=== PATIENT | male | born 1985 | race Caucasian/White ===

== ENCOUNTER 2018-06-19 01:37 | Emergency (ER) | payer OTHER, MEDICARE ==
[2018-06-19] MEDS ORDERED: Morphine 4 MG/ML VIAL ONE (02:08)
[2018-06-19 02:59] LABS: #Eosinphils 0.1 thou/uL (0.0-0.7); #Monocytes 0.5 thou/uL (0.11-0.59); #Neutrophils 3.7 thou/uL (1.40-6.50); %Basophils 0.2 % (0.0-1.0); %Eosinophils 1.4 % (0.0-10.0); %Lymphocytes 32.1 % (21.0-51.0); %Neutrophils 58.4 % (42.0-75.0); Hemoglobin 14.8 g/dL (14.0-18.0); Mean Corpuscular HGB CONC 34.7 g/dL (32.0-36.0); Mean Corpuscular Hemoglobin 31.3 pg (27.0-31.0); Mean Corpuscular Volume 90.2 fL (78.0-98.0); Mean Platelet Volume 7.7 fL (7.4-10.4); Platelet Count 236 thou/uL (130-400); RBC Distribution Width 11.1 % (11.5-14.5); Red Blood Cell (RBC) Count 4.72 mill/uL (4.70-6.10); White Blood Cell (WBC) Count 6.3 thou/uL (4.8-10.8)
[2018-06-19 03:16] LABS: ALT (SGPT) 21 U/L (8-55); AST (SGOT) 18 U/L (5-34); Albumin 4.5 g/dL (3.5-5.0); Alkaline Phosphatase 67 U/L (40-150); Anion Gap 12 mmol/L (10-20); BUN (Urea Nitrogen) 13 mg/dL (8.9-20.6); Bilirubin, Total 0.8 mg/dL (0.2-1.2); Calc. Creatinine Clearance 0 mL/min (70-130); Carbon Dioxide 24 mmol/L (22-29); Chloride 108 mmol/L (98-107); Estimated GFR-MDRD 88; Globulin 2.5 g/dL (2.4-3.5); Glucose 109 mg/dL (70-105); Potassium 3.6 mmol/L (3.5-5.1); Sodium 140 mmol/L (136-145)
[2018-06-19] MEDS ORDERED: Acetaminophen/Codeine 30-300mg Tablet ONE ×2 (03:20)
[2018-06-19] MEDS ORDERED: Ketorolac Tromethamine 30 MG/ML VIAL ONE (03:37)
[2018-06-19] MEDS ORDERED: Morphine 10 MG/ML VIAL ONE (03:37)
--- NOTE | 2018-06-19 08:24 | CT ---
PRELIMINARY REPORT/[facility]/EMERGENTY AFTER-HOURS PROCEDURE CT Head Without Intravenous Contrast EXAM DATE/TIME: 06/19/2018 2:34 AM CLINICAL HISTORY: 33 years old, male; Pain and signs and symptoms; Dizziness; Headache; Patient HX: Er 8; M73 presents to the ed C/O chest pain and SOB that was first noticed 1 month ago. PT. Reports that his symptoms we re exacerbated tonight around 2300 while laying down. PT. Describes pain as being localized in center of chest and as a pressure. PT. Does have HX of breast CA in 2000, had a resectio n. TECHNIQUE: Axial computed tomography images of the head/brain without intravenous contrast. COMPARISON: No relevant prior studies available. FINDINGS: Brain: There is no evidence of intracranial hemorrhage. No white matter abnormalities. Ventricles: There is a THIOKOL OPERATOR shunt which enters via the RIGHT frontal lobe and courses into the RIGHT fr ontal horn. No ventricular dilatation. Bones/joints: Patient is post posterior craniectomy Sinuses: Normal as visualized. No acute sinusitis. Mastoid air cells: Normal as visualized. No mastoid effusion. Soft tissues: Normal. IMPRESSION: No acute intracranial hemorrhage. Posterior craniectomy with THIOKOL OPERATOR shunt as above. Thank you for allowing us to participate in the care of your patient. Dictated and Authenticated by: Naresh Yoon MD 06/19/2018 2:49 AM Central Time ([place] & [place]) FINAL REPORT CT HEAD NONCONTRAST: DATE: 06/19/2018. TIME: Performed on an emergency basis at 0235 hours. HISTORY: Headache. Prior surgery. FINDINGS: No comparison. Agree with the preliminary report by Dr. Yoon from [facility]. Postoperativ e changes. No acute intracranial abnormalities are demonstrated. POS: [facility]
--- NOTE | 2018-06-19 08:37 | RAD ---
SKULL 2 VIEWS NECK 1 VIEW CHEST 1 VIEW ABDOMEN 1 VIEW: Date: 06/19/18 HISTORY: Evaluate shunt integrity. Headache. FINDINGS: Radiopaque tubing extends from the right cranium along the right side of the neck, mediastinum, and i nto the right lower quadrant of the abdomen. No discontinuity is apparent. No active cardiopulmonary abnormalities are demonstrated. Bowel gas pattern is nonspecific. IMPRESSION: Right ventriculoperitoneal shunt is radiographically intact. POS: [facility]
== END 2018-06-19 04:33 | disposition home or self-care (01) ==
LOC: ERS 01:37
DX: R51 Headache (principal); F17.210 Nicotine dependence, cigarettes, uncomplicated
CPT/HCPCS: 36415; 70450; 75809; 80053; 85025; 85652; 86140; 96361; 96374; 96375; 96376; J1885; J2270

== ENCOUNTER 2018-09-27 21:50 | Emergency (ER) | payer OTHER, MEDICARE ==
[2018-09-27] MEDS ORDERED: Ondansetron PF 4 MG/2 ML Vial ONE (22:32)
[2018-09-27] MEDS ORDERED: Morphine 4 MG/ML VIAL ONE (22:32)
--- NOTE | 2018-09-27 23:03 | CT ---
NONCONTRAST CT HEAD: 09/27/18 HISTORY: Headache with onset of symptoms this morning. Pain is located in back of head. COMPARISON: 06/19/18. FINDINGS: Ventriculoperitoneal shunt catheter is again noted in place entering via the right frontal approach w ith the tip unchanged in position near the foramen of Monro on the right. There is no evidence of an intraparenchymal or extra-axial hemorrhage. No mass effect or midline shift is seen. Postsurgical lissette nges related to occipital craniotomy defect are again seen with mild volume loss involving the medial aspects of each cerebellar hemisphere. There has been no other interval change from the prior exam. IMPRESSION: 1. No acute intracranial abnormalities demonstrated. 2. Ventriculoperitoneal shunt catheter stable in position without evidence of hydrocephalus. The re is stable asymmetry in the size of the left lateral ventricle compared to the right. 3. Stable occipital craniotomy defect. POS: [facility]
--- NOTE | 2018-09-27 23:06 | RAD ---
SHUNTOGRAM: 09/27/18 HISTORY: Patient reports headaches that started this morning with nausea. History of prior brain surgeries and brain swelling. COMPARISON: 06/19/18. FINDINGS: AP and lateral views of the skull, AP views of the chest and abdomen are obtained. As noted on the prior exam, there is a ventriculoperitoneal shunt catheter entered via a right fronta l approach. The ventriculoperitoneal shunt catheter does appear to be intact. Distal portion of the c atheter extends into the pelvis with the tip overlying the central pelvis to the left of midline. The lungs are clear. Bowel gas pattern is nonspecific. IMPRESSION: Right ventriculoperitoneal shunt catheter which is radiographically intact. POS: [facility]
[2018-09-28] MEDS ORDERED: Ketorolac Tromethamine 30 MG/ML VIAL ONE ×2 (00:05→00:07)
[2018-09-28] MEDS ORDERED: Morphine 4 MG/ML VIAL ONE ×2 (00:05→00:07)
== END 2018-09-28 00:45 | disposition home or self-care (01) ==
LOC: ERS 21:50
DX: R51 Headache (principal); F17.210 Nicotine dependence, cigarettes, uncomplicated
CPT/HCPCS: 70450; 75809; 96361; 96374; 96375; 96376; J1885; J2270; J2405

== ENCOUNTER 2018-12-18 13:48 | Emergency (ER) | payer MEDICARE, OTHER ==
[2018-12-18 15:00] LABS: #Basophils 0.1 thou/uL (0.0-0.2); #Eosinphils 0.1 thou/uL (0.0-0.7); #Lymphocytes 1.6 thou/uL (1.20-3.40); #Monocytes 0.3 thou/uL (0.11-0.59); #Neutrophils 3.5 thou/uL (1.40-6.50); %Eosinophils 1.6 % (0.0-10.0); %Lymphocytes 28.1 % (21.0-51.0); %Monocytes 5.6 % (0.0-10.0); %Neutrophils 63.8 % (42.0-75.0); Hemoglobin 14.7 g/dL (14.0-18.0); Mean Corpuscular HGB CONC 33.9 g/dL (32.0-36.0); Mean Corpuscular Hemoglobin 30.1 pg (27.0-31.0); Mean Corpuscular Volume 88.7 fL (78.0-98.0); Mean Platelet Volume 8.1 fL (7.4-10.4); Platelet Count 234 thou/uL (130-400); RBC Distribution Width 11.3 % (11.5-14.5); Red Blood Cell (RBC) Count 4.89 mill/uL (4.70-6.10); White Blood Cell (WBC) Count 5.5 thou/uL (4.8-10.8)
--- NOTE | 2018-12-18 15:02 | CT ---
Exam: CT brain without contrast HISTORY: History of traumatic brain injury with altered mental status COMPARISON: 09/27/2018 TECHNIQUE: Multiple contiguous axial images were obtained and a CT of the brain without contrast. FINDINGS: The ventriculostomy catheter is unchanged in position. There is no evidence of hydrocephalu s, intracranial hemorrhage, or extra-axial fluid collection. Postsurgical changes are seen in the posterior calvarium and surrounding the right frontal approach v entriculostomy catheter.. The visualized paranasal sinuses and mastoid air cells are well aerated. IMPRESSION: No evidence of acute intracranial abnormality
[2018-12-18 15:18] LABS: ALT (SGPT) 12 U/L (8-55); AST (SGOT) 15 U/L (5-34); Albumin 4.7 g/dL (3.5-5.0); Alkaline Phosphatase 89 U/L (40-150); Anion Gap 9 mmol/L (10-20); BUN (Urea Nitrogen) 12 mg/dL (8.9-20.6); Bilirubin, Total 0.4 mg/dL (0.2-1.2); CK (CPK) 189 U/L (30-200); Calc. Creatinine Clearance 0 mL/min (70-130); Calcium 9.8 mg/dL (7.8-10.44); Carbon Dioxide 30 mmol/L (22-29); Chloride 106 mmol/L (98-107); Estimated GFR-MDRD 80; Globulin 2.6 g/dL (2.4-3.5); Glucose 79 mg/dL (70-105); Potassium 4.2 mmol/L (3.5-5.1); Protein, Total 7.3 g/dL (6.0-8.3); Sodium 141 mmol/L (136-145)
--- NOTE | 2018-12-20 14:22 | EKG ---
Test Reason : Blood Pressure : / mmHG Vent. Rate : 057 BPM Atrial Rate : 057 BPM P-R Int : 140 ms QRS Dur : 096 ms QT Int : 398 ms P-R-T Axes : 023 010 029 degrees QTc Int : 387 ms Sinus bradycardia Otherwise normal ECG Confirmed by MARIE HERNANDEZ DO ([id number]), design editor SHAUN DOMINGO ([id number]) on 12/20/2018 2:22:05 PM Referred By: Confirmed By:MARIE HERNANDEZ DO
== END 2018-12-18 18:10 | disposition home or self-care (01) ==
LOC: ERS 13:48
DX: R53.83 Other fatigue (principal); R51 Headache; H53.8 Other visual disturbances; F43.10 Post-traumatic stress disorder, unspecified; F17.220 Nicotine dependence, chewing tobacco, uncomplicated
CPT/HCPCS: 36415; 70450; 80053; 82550; 84443; 85025; 93005

== ENCOUNTER 2021-09-09 00:06 | Emergency (ER) | payer OTHER ==
[2021-09-09] MEDS ORDERED: diphenhydrAMINE 50 MG/ML VIAL ONE (00:51)
[2021-09-09] MEDS ORDERED: Metoclopramide HCl 10 MG/2 ML VIAL ONE (00:51)
[2021-09-09] MEDS ORDERED: Haloperidol Lactate 5 MG/ML VIAL ONE (02:21)
== END 2021-09-09 02:26 | disposition home or self-care (01) ==
LOC: ERS 00:06
DX: R51.9 Headache, unspecified (principal); Z87.820 Personal history of traumatic brain injury; F17.220 Nicotine dependence, chewing tobacco, uncomplicated; F17.210 Nicotine dependence, cigarettes, uncomplicated
CPT/HCPCS: 96374; 96375; J1200; J1630; J2765

== ENCOUNTER 2021-10-14 14:00 | Inpatient (IN) | payer OTHER ==
[2021-10-14] MEDS ORDERED: Ketorolac Tromethamine 30 MG/ML VIAL ONE (14:45)
[2021-10-14] MEDS ORDERED: Metoclopramide HCl 10 MG/2 ML VIAL ONE (14:45)
[2021-10-14] MEDS ORDERED: Morphine 4 MG/ML VIAL ONE ×2 (16:55→17:34)
[2021-10-14] MEDS ORDERED: Ondansetron PF 4 MG/2 ML Vial ONE (16:55)
[2021-10-14 17:24] LABS: #Lymphocytes 1.4 thou/uL (1.20-3.40); #Monocytes 0.3 thou/uL (0.11-0.59); #Neutrophils 3.9 thou/uL (1.40-6.50); %Basophils 0.8 % (0.0-1.0); %Eosinophils 0.9 % (0.0-10.0); %Monocytes 4.8 % (0.0-10.0); %Neutrophils 69.5 % (42.0-75.0); Hemoglobin 15.4 g/dL (14.0-18.0); Mean Corpuscular HGB CONC 35.2 g/dL (32.0-36.0); Mean Corpuscular Hemoglobin 31.2 pg (27.0-31.0); Mean Corpuscular Volume 88.6 fL (78.0-98.0); Mean Platelet Volume 7.9 fL (7.4-10.4); Platelet Count 222 thou/uL (130-400); RBC Distribution Width 11.2 % (11.5-14.5); Red Blood Cell (RBC) Count 4.94 mill/uL (4.70-6.10); White Blood Cell (WBC) Count 5.7 thou/uL (4.8-10.8)
[2021-10-14 17:46] LABS: ALT (SGPT) 43 U/L (8-55); AST (SGOT) 29 U/L (5-34); Albumin 4.6 g/dL (3.5-5.0); Alkaline Phosphatase 79 U/L (40-110); Anion Gap 13 mmol/L (10-20); BUN (Urea Nitrogen) 12 mg/dL (8.9-20.6); Bilirubin, Total 0.4 mg/dL (0.2-1.2); Calc. Creatinine Clearance 0 mL/min (70-130); Calcium 9.4 mg/dL (7.8-10.44); Carbon Dioxide 25 mmol/L (22-29); Chloride 106 mmol/L (98-107); Globulin 2.8 g/dL (2.4-3.5); Glucose 131 mg/dL (70-105); Potassium 4.5 mmol/L (3.5-5.1); Protein, Total 7.4 g/dL (6.0-8.3); Sodium 139 mmol/L (136-145)
[2021-10-14] MEDS ORDERED: Acetaminophen 325 MG TAB PO PRN (17:58)
[2021-10-14] MEDS ORDERED: Ondansetron PF 4 MG/2 ML Vial IVP PRN (17:59)
[2021-10-14 18:42] LABS: SARS-CoV-2 NAA Rapid Test Not Detected (NotDetected)
[2021-10-14] MEDS: Acetaminophen/Codeine 30-300mg Tablet PO PRN (19:12)
[2021-10-14 19:52] VITALS: BMI 30.4
[2021-10-14] MEDS: Morphine 4 MG/ML VIAL SLOW IVP PRN (22:56)
[2021-10-15] MEDS: Acetaminophen/Codeine 30-300mg Tablet PO PRN ×2 (01:56→22:19)
[2021-10-15] MEDS: Morphine 4 MG/ML VIAL SLOW IVP PRN ×3 (02:54→08:42)
[2021-10-15] MEDS: HYDROcodone/Acetaminophen 5/325 mg Tablet PO PRN ×3 (06:44→21:09)
[2021-10-15] MEDS ORDERED: Fentanyl 100 MCG/2 ML VIAL ONE ×4 (09:41→13:37)
[2021-10-15] MEDS ORDERED: ceFAZolin 2 GM/Dextrose 50 ML IVPB ONE (09:41)
[2021-10-15] MEDS ORDERED: Bacitracin Zinc Ointment 30 gm TUBE ONE (10:11)
[2021-10-15] MEDS ORDERED: Lidocaine 0.5%/Epinephrine 1:200,000 50 ml Vial ONE (10:11)
[2021-10-15] MEDS ORDERED: Thrombin 5000 UNITS/5 ML VIAL ONE (10:11)
[2021-10-15] MEDS ORDERED: Rocuronium Bromide 10 MG/ML (10ML VIAL) ONE (11:23)
[2021-10-15] MEDS ORDERED: PROPOFOL 200 MG/20 ML VIAL ONE (11:23)
[2021-10-15] MEDS ORDERED: Ketorolac Tromethamine 30 MG/ML VIAL ONE (11:23)
[2021-10-15] MEDS ORDERED: Glycopyrrolate 0.2 MG/ML 5 ML SYRINGE ONE (11:23)
[2021-10-15] MEDS ORDERED: Ondansetron PF 4 MG/2 ML Vial ONE (11:23)
[2021-10-15] MEDS ORDERED: Lidocaine 1% PF 5 ML VIAL ONE (11:23)
[2021-10-15] MEDS ORDERED: Dexamethasone 20 MG/5 ML VIAL ONE (11:23)
[2021-10-15] MEDS ORDERED: hydrALAZINE 20 MG/ML VIAL SLOW IVP PRN (12:45)
[2021-10-15] MEDS ORDERED: ceFAZolin 2 GM/Dextrose 50 ML 2 GM in Premix Bag 1 BAG IVPB SCH (14:00)
[2021-10-15] MEDS: Sodium Chloride 0.9% 1,000 ML IV SCH (14:43)
[2021-10-15] MEDS ORDERED: Fentanyl 100 MCG/2 ML VIAL SLOW IVP PRN (15:20)
[2021-10-15] MEDS: Fentanyl 100 MCG/2 ML VIAL SLOW IVP PRN ×4 (15:43→22:17)
[2021-10-15] MEDS: ceFAZolin 2 GM/Dextrose 50 ML 2 GM in Premix Bag 1 BAG IVPB SCH (20:10)
[2021-10-16] MEDS: Fentanyl 100 MCG/2 ML VIAL SLOW IVP PRN ×3 (00:28→08:07)
[2021-10-16] MEDS: HYDROcodone/Acetaminophen 5/325 mg Tablet PO PRN (03:18)
[2021-10-16] MEDS: Sodium Chloride 0.9% 1,000 ML IV SCH (03:20)
[2021-10-16] MEDS: Acetaminophen/Codeine 30-300mg Tablet PO PRN (04:33)
[2021-10-16] MEDS: ceFAZolin 2 GM/Dextrose 50 ML 2 GM in Premix Bag 1 BAG IVPB SCH ×2 (04:34→11:55)
[2021-10-16] MEDS ORDERED: Ketorolac Tromethamine 30 MG/ML VIAL IVP SCH (10:00)
[2021-10-16] MEDS ORDERED: Labetalol HCl 100 MG/20 ML VIAL ONE (12:15)
[2021-10-16 12:30] VITALS: BP 112/68; TEMP 98
== END 2021-10-16 14:10 | disposition home or self-care (01) | DRG 32 ==
LOC: ERS 14:00 → CCU 17:35 → SURG B 10-15 13:55
PROVIDERS: ADMIT Surgery; ATTEND Surgery
PROC: 00W60JZ Revision of Synthetic Substitute in Cerebral Ventricle, Open Approach (ICD-10-PCS; principal; 2021-10-15)
DX: T85.09XA Other mechanical complication of ventricular intracranial (communicating) shunt, initial encounter (principal); G91.9 Hydrocephalus, unspecified; Z20.822 Contact with and (suspected) exposure to COVID-19; Y83.8 Other surgical procedures as the cause of abnormal reaction of the patient, or of later complication, without mention of misadventure at the time of the procedure; F43.10 Post-traumatic stress disorder, unspecified; F17.220 Nicotine dependence, chewing tobacco, uncomplicated; Z87.820 Personal history of traumatic brain injury; Z82.49 Family history of ischemic heart disease and other diseases of the circulatory system; Z79.899 Other long term (current) drug therapy
CPT/HCPCS: 70450; 72125; 75809; 80053; 85025; 85652; 86140; C1889; J0690; J1100; J1885; J2001; J2270; J2405; J2704; J2765; J3010; J3370; J7050; L8501; U0002

== ENCOUNTER 2022-04-06 21:47 | Emergency (ER) | payer OTHER ==
[~2022-04-06 21:47] MED LIST: Iopamidol-370 76% 500 ML 1 ML ONE
[2022-04-06] MEDS ORDERED: Meclizine HCl 25 MG TAB ONE (22:11)
[2022-04-06 22:28] LABS: Hemoglobin 14.5 g/dL (14.0-18.0); Mean Corpuscular HGB CONC 34.2 g/dL (32.0-36.0); Mean Corpuscular Hemoglobin 31.4 pg (27.0-31.0); Mean Corpuscular Volume 91.7 fL (78.0-98.0); RBC Distribution Width 11.8 % (11.5-14.5); Red Blood Cell (RBC) Count 4.63 mill/uL (4.70-6.10); White Blood Cell (WBC) Count 9.3 thou/uL (4.8-10.8)
[2022-04-06 22:40] LABS: ALT (SGPT) 31 U/L (8-55); AST (SGOT) 23 U/L (5-34); Albumin 4.4 g/dL (3.5-5.0); Alkaline Phosphatase 76 U/L (40-110); Anion Gap 13 mmol/L (10-20); BUN (Urea Nitrogen) 9 mg/dL (8.9-20.6); Bilirubin, Total 0.6 mg/dL (0.2-1.2); Calc. Creatinine Clearance 0 mL/min (70-130); Calcium 8.9 mg/dL (7.8-10.44); Carbon Dioxide 26 mmol/L (22-29); Chloride 107 mmol/L (98-107); Estimated GFR 82; Globulin 2.5 g/dL (2.4-3.5); Glucose 98 mg/dL (70-105); Potassium 3.4 mmol/L (3.5-5.1); Protein, Total 6.9 g/dL (6.0-8.3); Sodium 143 mmol/L (136-145)
[2022-04-06 22:41] LABS: #Basophils 0.1 thou/uL (0.0-0.2); #Eosinphils 0.1 thou/uL (0.0-0.7); #Lymphocytes 2.9 thou/uL (1.20-3.40); #Monocytes 0.8 thou/uL (0.11-0.59); #Neutrophils 5.4 thou/uL (1.40-6.50); %Basophils 0.8 % (0.0-1.0); %Eosinophils 1.5 % (0.0-10.0); %Lymphocytes 31.6 % (21.0-51.0); %Monocytes 8.6 % (0.0-10.0); %Neutrophils 57.5 % (42.0-75.0); Mean Platelet Volume 9.1 fL (7.4-10.4); Platelet Count 171 thou/uL (130-400)
== END 2022-04-07 00:05 | disposition home or self-care (01) ==
LOC: ERS 21:47
DX: H81.393 Other peripheral vertigo, bilateral (principal); F17.220 Nicotine dependence, chewing tobacco, uncomplicated
CPT/HCPCS: 36415; 70450; 70496; 70498; 75809; 80053; 85025; 93005

== ENCOUNTER 2022-04-27 09:43 | Emergency (ER) | payer OTHER ==
[2022-04-27 12:28] LABS: #Eosinphils 0.1 thou/uL (0.0-0.7); #Lymphocytes 1.5 thou/uL (1.20-3.40); #Monocytes 0.4 thou/uL (0.11-0.59); #Neutrophils 5.4 thou/uL (1.40-6.50); %Basophils 0.5 % (0.0-1.0); %Eosinophils 0.8 % (0.0-10.0); %Lymphocytes 19.9 % (21.0-51.0); %Monocytes 5.3 % (0.0-10.0); %Neutrophils 73.5 % (42.0-75.0); Hemoglobin 15.7 g/dL (14.0-18.0); Mean Corpuscular HGB CONC 33.5 g/dL (32.0-36.0); Mean Corpuscular Hemoglobin 30.8 pg (27.0-31.0); Mean Corpuscular Volume 92.2 fL (78.0-98.0); Mean Platelet Volume 8.1 fL (7.4-10.4); Platelet Count 219 thou/uL (130-400); RBC Distribution Width 11.8 % (11.5-14.5); Red Blood Cell (RBC) Count 5.09 mill/uL (4.70-6.10); White Blood Cell (WBC) Count 7.3 thou/uL (4.8-10.8)
[2022-04-27 12:57] LABS: ALT (SGPT) 22 U/L (8-55); AST (SGOT) 16 U/L (5-34); Albumin 4.6 g/dL (3.5-5.0); Alkaline Phosphatase 82 U/L (40-110); Anion Gap 12 mmol/L (10-20); BUN (Urea Nitrogen) 9 mg/dL (8.9-20.6); Bilirubin, Total 0.5 mg/dL (0.2-1.2); Calc. Creatinine Clearance 0 mL/min (70-130); Calcium 9.4 mg/dL (7.8-10.44); Carbon Dioxide 26 mmol/L (22-29); Chloride 106 mmol/L (98-107); Estimated GFR 95; Globulin 2.5 g/dL (2.4-3.5); Glucose 96 mg/dL (70-105); Protein, Total 7.1 g/dL (6.0-8.3); Sodium 140 mmol/L (136-145)
== END 2022-04-27 15:29 | disposition home or self-care (01) ==
LOC: ERS 09:43
DX: Z45.41 Encounter for adjustment and management of cerebrospinal fluid drainage device (principal); F17.220 Nicotine dependence, chewing tobacco, uncomplicated
CPT/HCPCS: 36415; 70450; 75809; 80053; 85025; 93005

== ENCOUNTER 2022-05-07 08:00 | Outpatient (CLI) | payer OTHER | END 2022-05-07 08:01 | disposition home or self-care (01) | LOC: CT 08:00 | PROVIDERS: ATTEND Surgery | DX: G91.9 Hydrocephalus, unspecified (principal); Z98.2 Presence of cerebrospinal fluid drainage device | CPT/HCPCS: 70450 ==

== ENCOUNTER 2022-05-18 13:07 | Outpatient (CLI) | payer OTHER | END 2022-05-18 13:08 | disposition home or self-care (01) | LOC: CT 13:07 | PROVIDERS: ATTEND Surgery | DX: G91.9 Hydrocephalus, unspecified (principal) | CPT/HCPCS: 70450 ==

== ENCOUNTER 2022-06-09 11:49 | Inpatient (IN) | payer OTHER ==
[2022-06-09 13:28] LABS: #Eosinphils 0.1 thou/uL (0.0-0.7); #Lymphocytes 1.4 thou/uL (1.20-3.40); #Monocytes 0.4 thou/uL (0.11-0.59); %Basophils 0.7 % (0.0-1.0); %Eosinophils 1.6 % (0.0-10.0); %Lymphocytes 20.6 % (21.0-51.0); %Monocytes 5.2 % (0.0-10.0); Hemoglobin 15.4 g/dL (14.0-18.0); Mean Corpuscular HGB CONC 34.9 g/dL (32.0-36.0); Mean Corpuscular Hemoglobin 32.1 pg (27.0-31.0); Mean Corpuscular Volume 91.9 fL (78.0-98.0); Mean Platelet Volume 7.7 fL (7.4-10.4); Platelet Count 207 thou/uL (130-400); RBC Distribution Width 11.2 % (11.5-14.5); Red Blood Cell (RBC) Count 4.79 mill/uL (4.70-6.10); White Blood Cell (WBC) Count 6.9 thou/uL (4.8-10.8)
[2022-06-09 13:48] LABS: ALT (SGPT) 31 U/L (8-55); AST (SGOT) 19 U/L (5-34); Albumin 4.7 g/dL (3.5-5.0); Alkaline Phosphatase 80 U/L (40-110); Anion Gap 11 mmol/L (10-20); BUN (Urea Nitrogen) 11 mg/dL (8.9-20.6); Bilirubin, Total 0.5 mg/dL (0.2-1.2); Calc. Creatinine Clearance 0 mL/min (70-130); Calcium 9.3 mg/dL (7.8-10.44); Carbon Dioxide 27 mmol/L (22-29); Chloride 105 mmol/L (98-107); Estimated GFR 89; Globulin 2.6 g/dL (2.4-3.5); Glucose 91 mg/dL (70-105); Potassium 4.1 mmol/L (3.5-5.1); Protein, Total 7.3 g/dL (6.0-8.3); Sodium 139 mmol/L (136-145)
[2022-06-09 13:50] LABS: CRP (Inflammatory) Less than 0.50 mg/dL (= or < 0.5); Magnesium 2.1 mg/dL (1.6-2.6)
[2022-06-09] MEDS ORDERED: Acetaminophen 325 MG TAB PO PRN (15:44)
[2022-06-09] MEDS ORDERED: Ondansetron PF 4 MG/2 ML Vial IVP PRN (15:44)
[2022-06-09] MEDS ORDERED: traMADol HCl 50 MG TAB PO PRN (15:48)
[2022-06-09 16:15] LABS: PTT 28.1 sec (22.9-36.1); Prothrombin Time 13.1 sec (12.0-14.7)
[2022-06-09 16:33] LABS: SARS-CoV-2 NAA Rapid Test Not Detected (NotDetected)
[2022-06-09 18:09] VITALS: BMI 28.8
[2022-06-10] MEDS ORDERED: fentaNYL Citrate/PF 100 MCG/2 ML SYRINGE ONE ×2 (07:00→10:03)
[2022-06-10] MEDS ORDERED: Lidocaine 2% 6 ML SYR ONE (07:01)
[2022-06-10] MEDS ORDERED: Bupivacaine/Epinephrine 0.25% 30 ML VIAL ONE (07:21)
[2022-06-10] MEDS ORDERED: Bacitracin Zinc Ointment 30 gm TUBE ONE (07:21)
[2022-06-10] MEDS ORDERED: Lidocaine 0.5%/Epinephrine 1:200,000 50 ml Vial ONE (07:27)
[2022-06-10] MEDS ORDERED: Sodium Chloride 0.9% 100 ML ONE (09:46)
[2022-06-10] MEDS ORDERED: CEFAZOLIN 2 GM VIAL ONE (09:46)
[2022-06-10] MEDS ORDERED: Glycopyrrolate 0.2 MG/ML 5 ML SYRINGE ONE (10:06)
[2022-06-10] MEDS ORDERED: NEOSTIGMINE 3 MG/3 ML SYR 3 MG/3 ML SYRINGE ONE (10:06)
[2022-06-10] MEDS ORDERED: Ketorolac Tromethamine 30 MG/ML VIAL ONE (10:06)
[2022-06-10] MEDS ORDERED: Rocuronium Bromide 10 MG/ML (10ML VIAL) ONE (10:06)
[2022-06-10] MEDS ORDERED: Lidocaine 1% MPF 2 ML VIAL ONE (10:06)
[2022-06-10] MEDS ORDERED: Ondansetron PF 4 MG/2 ML Vial ONE (10:06)
[2022-06-10] MEDS ORDERED: Dexamethasone 20 MG/5 ML VIAL ONE (10:06)
[2022-06-10] MEDS ORDERED: PROPOFOL 200 MG/20 ML VIAL ONE (10:06)
[2022-06-10] MEDS ORDERED: Ondansetron HCl/PF 4 MG/2 ML Vial IVP PRN (11:04)
[2022-06-10] MEDS ORDERED: Promethazine HCl 25 MG/ML VIAL IM PRN (11:04)
[2022-06-10] MEDS ORDERED: Promethazine HCl 25 MG/ML VIAL IVPB PRN (11:04)
[2022-06-10] MEDS ORDERED: Fentanyl 100 MCG/2 ML VIAL ONE (11:17)
[2022-06-10 11:35] LABS: CSF, Glucose 66 mg/dl (40-70); CSF, Protein 20 mg/dL (15-40)
[2022-06-10] MEDS: HYDROcodone/Acetaminophen 5/325 mg Tablet PO PRN ×3 (12:07→23:36)
[2022-06-10 12:10] LABS: CSF Source CSF; Clarity Clear (Clear); Tube # 1
[2022-06-10 12:43] LABS: CSF RBC Count - Manual 267 /cu.mm (None Seen); CSF WBC/NonHematics Count-Man 10 /cu.mm (0-5)
[2022-06-10 12:54] LABS: Cell Count Non Hematic 52 %; Lymphocytes 45 %; Segmented Neutrophils 3 %
[2022-06-10] MEDS: Acetaminophen/Codeine 30-300mg Tablet PO PRN ×2 (16:06→20:36)
[2022-06-10] MEDS: CEFAZOLIN 2 GM in Sodium Chloride 0.9% 100 ML IVPB SCH (17:53)
[2022-06-11] MEDS: CEFAZOLIN 2 GM in Sodium Chloride 0.9% 100 ML IVPB SCH ×2 (02:08→10:02)
[2022-06-11] MEDS: Acetaminophen/Codeine 30-300mg Tablet PO PRN ×2 (02:09→07:59)
[2022-06-11] MEDS: HYDROcodone/Acetaminophen 5/325 mg Tablet PO PRN (05:07)
[2022-06-11 08:27] VITALS: BP 128/75; TEMP 97.8
== END 2022-06-11 11:00 | disposition home or self-care (01) | DRG 30 ==
LOC: ERS 11:49 → SURG B 15:49
PROVIDERS: ADMIT Surgery; ATTEND Surgery
PROC: 00P60JZ Removal of Synthetic Substitute from Cerebral Ventricle, Open Approach (ICD-10-PCS; principal; 2022-06-10)
PROC: 009U0ZX Drainage of Spinal Canal, Open Approach, Diagnostic (ICD-10-PCS; 2022-06-10)
DX: T85.09XA Other mechanical complication of ventricular intracranial (communicating) shunt, initial encounter (principal); Y83.1 Surgical operation with implant of artificial internal device as the cause of abnormal reaction of the patient, or of later complication, without mention of misadventure at the time of the procedure; Z20.822 Contact with and (suspected) exposure to COVID-19; G96.81 Intracranial hypotension; F43.10 Post-traumatic stress disorder, unspecified; F17.220 Nicotine dependence, chewing tobacco, uncomplicated; Z98.890 Other specified postprocedural states; Z88.8 Allergy status to other drugs, medicaments and biological substances; Z87.820 Personal history of traumatic brain injury
CPT/HCPCS: 70450; 80053; 82945; 83735; 84157; 85025; 85060; 85610; 85652; 85730; 86140; 87070; 87205; 89051; C1750; J0690; J1100; J1885; J2001; J2405; J2704; J3010; J3370; J3490; U0002

== ENCOUNTER 2022-07-29 11:00 | Inpatient (IN) | payer OTHER ==
[2022-07-29] MEDS ORDERED: Metoclopramide HCl 10 MG/2 ML VIAL ONE (11:27)
[2022-07-29] MEDS ORDERED: diphenhydrAMINE 50 MG/ML VIAL ONE (11:27)
[2022-07-29] MEDS ORDERED: Ketorolac Tromethamine 30 MG/ML VIAL ONE (11:27)
[2022-07-29] MEDS ORDERED: Midazolam HCl 2 mg/2 ml Vial ONE (13:41)
[2022-07-29] MEDS ORDERED: Ketamine 50 MG/ML (10ML VIAL) ONE (13:41)
[2022-07-29] MEDS ORDERED: Lidocaine 1% w/Epinephrine 1:100K 20 ML VIAL ONE (13:59)
[2022-07-29 14:07] LABS: #Lymphocytes 1.2 thou/uL (1.20-3.40); #Monocytes 0.3 thou/uL (0.11-0.59); #Neutrophils 13.4 thou/uL (1.40-6.50); %Basophils 0.2 % (0.0-1.0); %Eosinophils 0.1 % (0.0-10.0); %Monocytes 1.9 % (0.0-10.0); %Neutrophils 89.8 % (42.0-75.0); Hemoglobin 15.4 g/dL (14.0-18.0); Mean Corpuscular HGB CONC 34.8 g/dL (32.0-36.0); Mean Corpuscular Hemoglobin 31.5 pg (27.0-31.0); Mean Corpuscular Volume 90.6 fl (78.0-98.0); Mean Platelet Volume 8.1 fL (7.4-10.4); Platelet Count 244 10x3/uL (130-400); RBC Distribution Width 11.4 % (11.5-14.5); Red Blood Cell (RBC) Count 4.89 mill/uL (4.70-6.10); White Blood Cell (WBC) Count 14.9 10x3/uL (4.8-10.8)
[2022-07-29 14:30] LABS: ALT (SGPT) 31 U/L (8-55); AST (SGOT) 20 U/L (5-34); Albumin 4.4 g/dL (3.5-5.0); Alkaline Phosphatase 78 U/L (40-110); Anion Gap 12 mmol/L (10-20); BUN (Urea Nitrogen) 13 mg/dL (8.9-20.6); Bilirubin, Total 0.5 mg/dL (0.2-1.2); Calc. Creatinine Clearance 0 mL/min (70-130); Calcium 8.7 mg/dL (7.8-10.44); Carbon Dioxide 24 mmol/L (22-29); Chloride 108 mmol/L (98-107); Estimated GFR 95; Globulin 2.6 g/dL (2.4-3.5); Glucose 150 mg/dL (70-105); Potassium 3.7 mmol/L (3.5-5.1); Sodium 140 mmol/L (136-145)
[2022-07-29] MEDS ORDERED: diphenhydrAMINE 50 MG/ML VIAL IVP PRN (14:45)
[2022-07-29] MEDS ORDERED: Docusate 100 MG CAP PO PRN (14:45)
[2022-07-29] MEDS ORDERED: Morphine 2 MG/ML VIAL SLOW IVP PRN (14:45)
[2022-07-29] MEDS ORDERED: hydrALAZINE 20 MG/ML VIAL SLOW IVP PRN (14:45)
[2022-07-29] MEDS ORDERED: Ondansetron PF 4 MG/2 ML Vial IVP PRN (14:45)
[2022-07-29] MEDS: CEFAZOLIN 2 GM in Sodium Chloride 0.9% 100 ML IVPB SCH ×2 (17:23→23:02)
[2022-07-29] MEDS: Sodium Chloride 0.9% 1,000 ML IV SCH (17:24)
[2022-07-29] MEDS: Morphine 4 MG/ML VIAL SLOW IVP PRN (17:28)
[2022-07-29] MEDS: HYDROcodone/Acetaminophen 7.5/325 mg Tablet PO PRN (20:19)
[2022-07-29] MEDS: Famotidine/PF 20 mg/2ml Vial SLOW IVP SCH (20:20)
[2022-07-30] MEDS: HYDROcodone/Acetaminophen 7.5/325 mg Tablet PO PRN ×4 (00:05→17:00)
[2022-07-30] MEDS: Sodium Chloride 0.9% 1,000 ML IV SCH (05:04)
[2022-07-30] MEDS ORDERED: FLU VACC QS2022-23(6MOS UP)/PF 60 MCG/0.5 ML SYRINGE IM ONE (09:00)
[2022-07-30] MEDS ORDERED: Magnevist 469MG/ML 20 ML VIAL ONE (09:32)
[2022-07-30] MEDS ORDERED: Diazepam 5 MG TAB PO PRN (09:43)
[2022-07-30] MEDS: Famotidine/PF 20 mg/2ml Vial SLOW IVP SCH ×2 (09:47→20:01)
[2022-07-30] MEDS: Nicotine 14 MG PATCH TOP SCH (09:47)
[2022-07-30] MEDS: Morphine 4 MG/ML VIAL SLOW IVP PRN (13:18)
[2022-07-31] MEDS: HYDROcodone/Acetaminophen 7.5/325 mg Tablet PO PRN ×3 (00:19→20:42)
[2022-07-31] MEDS: Morphine 4 MG/ML VIAL SLOW IVP PRN ×2 (05:13→23:31)
[2022-07-31] MEDS: CEFAZOLIN 2 GM in Sodium Chloride 0.9% 100 ML IVPB SCH ×3 (07:17→20:44)
[2022-07-31] MEDS: Famotidine/PF 20 mg/2ml Vial SLOW IVP SCH ×2 (09:10→20:42)
[2022-07-31] MEDS: Nicotine 14 MG PATCH TOP SCH (09:49)
[2022-07-31] MEDS ORDERED: Polyethylene Glycol 3350 17 GM Packet PO PRN (15:35)
[2022-07-31 18:38] LABS: SARS-CoV-2 NAA Rapid Test Not Detected (NotDetected)
[2022-07-31] MEDS: Senokot S 8.6-50 MG TAB PO SCH (20:45)
[2022-08-01] MEDS: HYDROcodone/Acetaminophen 7.5/325 mg Tablet PO PRN ×4 (01:24→22:31)
[2022-08-01] MEDS: Morphine 4 MG/ML VIAL SLOW IVP PRN ×5 (04:20→21:11)
[2022-08-01] MEDS: CEFAZOLIN 2 GM in Sodium Chloride 0.9% 100 ML IVPB SCH ×3 (06:02→21:05)
[2022-08-01 06:21] VITALS: BMI 27.1
[2022-08-01] MEDS: Senokot S 8.6-50 MG TAB PO SCH ×2 (08:23→20:22)
[2022-08-01] MEDS: Famotidine/PF 20 mg/2ml Vial SLOW IVP SCH (08:24)
[2022-08-01] MEDS: Nicotine 14 MG PATCH TOP SCH (08:25)
[2022-08-01] MEDS ORDERED: Bupivacaine/Epinephrine 0.25% 30 ML VIAL ONE (10:32)
[2022-08-01] MEDS ORDERED: Lidocaine 1% (PF) 30 ML VIAL ONE (10:32)
[2022-08-01] MEDS ORDERED: EPINEPHrine 1 MG/ML AMP ONE (10:32)
[2022-08-01] MEDS ORDERED: Bacitracin Zinc Ointment 30 gm TUBE ONE (10:32)
[2022-08-01] MEDS ORDERED: Lidocaine 0.5%/Epinephrine 1:200,000 50 ml Vial ONE (10:33)
[2022-08-01] MEDS ORDERED: Dexmedetomidine 200 MCG/2 ML VIAL ONE (10:51)
[2022-08-01] MEDS ORDERED: fentaNYL PF 100 MCG/2 ML SYRINGE ONE (10:51)
[2022-08-01] MEDS ORDERED: Midazolam HCl 2 mg/2 ml Vial ONE (11:31)
[2022-08-01] MEDS ORDERED: SUGAMMADEX SODIUM 200 MG/2 ML VIAL ONE (12:45)
[2022-08-01] MEDS ORDERED: Docusate 100 MG CAP PO PRN (13:26)
[2022-08-01] MEDS ORDERED: Polyethylene Glycol 3350 17 GM Packet PO PRN (13:27)
[2022-08-01] MEDS ORDERED: hydrALAZINE 20 MG/ML VIAL SLOW IVP PRN (13:27)
[2022-08-01] MEDS ORDERED: Ondansetron PF 4 MG/2 ML Vial IVP PRN (13:27)
[2022-08-01] MEDS ORDERED: HYDROcodone/Acetaminophen 7.5/325 mg Tablet PO PRN (13:27)
[2022-08-01] MEDS: Acetaminophen/Codeine 30-300mg Tablet PO PRN (14:51)
[2022-08-01] MEDS: Acetaminophen 325 MG TAB PO PRN (15:58)
[2022-08-01] MEDS ORDERED: Ketorolac Tromethamine 30 MG/ML VIAL IVP SCH (19:00)
[2022-08-02] MEDS: Morphine 4 MG/ML VIAL SLOW IVP PRN ×2 (00:10→04:49)
[2022-08-02] MEDS: Acetaminophen/Codeine 30-300mg Tablet PO PRN (01:23)
[2022-08-02] MEDS: HYDROcodone/Acetaminophen 7.5/325 mg Tablet PO PRN ×2 (02:46→09:13)
[2022-08-02] MEDS ORDERED: Simethicone Chewable 80 MG TAB PO SCH (03:00)
[2022-08-02] MEDS: CEFAZOLIN 2 GM in Sodium Chloride 0.9% 100 ML IVPB SCH (04:50)
[2022-08-02] MEDS: Acetaminophen 325 MG TAB PO PRN (09:12)
[2022-08-02] MEDS: Senokot S 8.6-50 MG TAB PO SCH (09:14)
[2022-08-02 09:59] VITALS: TEMP 98
[2022-08-02] MEDS: Nicotine 14 MG PATCH TOP SCH (10:40)
== END 2022-08-02 10:40 | disposition home or self-care (01) | DRG 33 ==
LOC: ERS 11:00 → CCU 15:54
PROVIDERS: ADMIT Neurological Surgery; ATTEND Neurological Surgery
PROC: 00160J6 Bypass Cerebral Ventricle to Peritoneal Cavity with Synthetic Substitute, Open Approach (ICD-10-PCS; principal; 2022-08-01)
DX: G91.1 Obstructive hydrocephalus (principal); Z20.822 Contact with and (suspected) exposure to COVID-19; F43.10 Post-traumatic stress disorder, unspecified; F17.210 Nicotine dependence, cigarettes, uncomplicated; Z87.820 Personal history of traumatic brain injury
CPT/HCPCS: 36415; 70450; 70553; 80053; 85025; 85652; 86140; 87070; 87102; 87205; 93970; 96374; 96375; 99156; A9579; C1750; J0171; J1200; J1885; J2001; J2250; J2270; J2405; J2765; J3370; J3490; J7050; S0028; U0002

== ENCOUNTER 2022-09-05 20:01 | Emergency (ER) | payer OTHER ==
[2022-09-05 21:12] LABS: #Eosinphils 0.1 thou/uL (0.0-0.7); #Lymphocytes 1.5 thou/uL (1.20-3.40); #Monocytes 0.4 thou/uL (0.11-0.59); #Neutrophils 6.7 thou/uL (1.40-6.50); %Basophils 0.3 % (0.0-1.0); %Eosinophils 0.8 % (0.0-10.0); %Lymphocytes 16.8 % (21.0-51.0); %Neutrophils 77.1 % (42.0-75.0); Hemoglobin 15.4 g/dL (14.0-18.0); Mean Corpuscular HGB CONC 34.2 g/dL (32.0-36.0); Mean Corpuscular Hemoglobin 31.4 pg (27.0-31.0); Mean Corpuscular Volume 91.8 fl (78.0-98.0); Mean Platelet Volume 7.8 fL (7.4-10.4); Platelet Count 211 10x3/uL (130-400); RBC Distribution Width 11.4 % (11.5-14.5); Red Blood Cell (RBC) Count 4.89 mill/uL (4.70-6.10); White Blood Cell (WBC) Count 8.7 10x3/uL (4.8-10.8)
[2022-09-05 21:33] LABS: ALT (SGPT) 33 U/L (8-55); AST (SGOT) 24 U/L (5-34); Albumin 4.4 g/dL (3.5-5.0); Alkaline Phosphatase 78 U/L (40-110); Anion Gap 14 mmol/L (10-20); BUN (Urea Nitrogen) 9 mg/dL (8.9-20.6); Bilirubin, Total 1.1 mg/dL (0.2-1.2); Calc. Creatinine Clearance 0 mL/min (70-130); Calcium 9.2 mg/dL (7.8-10.44); Carbon Dioxide 23 mmol/L (22-29); Chloride 105 mmol/L (98-107); Estimated GFR 101; Globulin 2.5 g/dL (2.4-3.5); Glucose 119 mg/dL (70-105); Protein, Total 6.9 g/dL (6.0-8.3); Sodium 138 mmol/L (136-145)
== END 2022-09-05 21:10 | disposition left against medical advice (07) ==
LOC: ERS 20:01
DX: Z53.21 Procedure and treatment not carried out due to patient leaving prior to being seen by health care provider (principal)
CPT/HCPCS: 36415; 80053; 85025; 93005

== ENCOUNTER 2023-07-23 14:54 | Emergency (ER) | payer OTHER ==
[2023-07-23 16:32] LABS: Bacteria/HPF None Seen HPF (None Seen); Bilirubin Negative (Negative); Blood, Urine Negative (Negative); CAUTI Indications for Culture Pelvic or flank pain; Clarity Clear (Clear); Glucose, Urine (Dipstick) Normal (Negative); Ketone, Urine Negative (Negative); Leukocyte Negative Leu/uL (Negative); Nitrite Negative (Negative); Protein, Urine (Dipstick) Negative (Neg-Trace); RBC/HPF 0-3 HPF (0-3); Specific Gravity, Urine 1.014 (1.002-1.036); Squamous Epithelial None Seen HPF (0-3); Urobilinogen Normal mg/dL (Less than 2); WBC/HPF 0-3 HPF (0-3); pH, Urine 7.5 (5.0-9.0)
[2023-07-23 16:43] LABS: Urine Culture Reflex No No
[2023-07-23 16:54] LABS: #Eosinphils 0.1 thou/uL (0.0-0.7); #Monocytes 0.3 thou/uL (0.11-0.59); %Basophils 0.3 % (0.0-1.0); %Eosinophils 1.3 % (0.0-10.0); %Lymphocytes 27.6 % (21.0-51.0); %Monocytes 5.2 % (0.0-10.0); %Neutrophils 65.4 % (42.0-75.0); Hemoglobin 14.6 g/dL (14.0-18.0); Mean Corpuscular Hemoglobin 30.2 pg (27.0-31.0); Platelet Count 204 10x3/uL (130-400); RBC Distribution Width 12.7 % (11.5-14.5); Red Blood Cell (RBC) Count 4.83 mill/uL (4.70-6.10); White Blood Cell (WBC) Count 6.1 10x3/uL (4.8-10.8)
[2023-07-23 17:23] LABS: ALT (SGPT) 23 U/L (8-55); AST (SGOT) 20 U/L (5-34); Albumin 4.9 g/dL (3.5-5.0); Alkaline Phosphatase 74 U/L (40-110); Anion Gap 11 mmol/L (10-20); BUN (Urea Nitrogen) 12 mg/dL (8.9-20.6); Bilirubin, Total 0.5 mg/dL (0.2-1.2); Calc. Creatinine Clearance 0 mL/min (70-130); Carbon Dioxide 27 mmol/L (22-29); Chloride 107 mmol/L (98-107); Estimated GFR 89; Globulin 2.3 g/dL (2.4-3.5); Glucose 96 mg/dL (70-105); Potassium 4.2 mmol/L (3.5-5.1); Protein, Total 7.2 g/dL (6.0-8.3); Sodium 141 mmol/L (136-145)
== END 2023-07-23 18:00 ==
LOC: ERS 14:54
DX: R10.9 Unspecified abdominal pain (principal); G89.29 Other chronic pain
CPT/HCPCS: 74177; 80053; 81001; 85025

== ENCOUNTER 2023-08-20 10:43 | Emergency (ER) | payer OTHER ==
[2023-08-20] MEDS ORDERED: Iopamidol-370 76% 500 ML MDV (1 ML CHARGE) ONE (11:25)
[2023-08-20 11:30] LABS: #Eosinphils 0.1 thou/uL (0.0-0.7); #Monocytes 0.3 thou/uL (0.11-0.59); #Neutrophils 3.4 thou/uL (1.40-6.50); %Basophils 0.6 % (0.0-1.0); %Eosinophils 1.9 % (0.0-10.0); %Lymphocytes 27.6 % (21.0-51.0); %Monocytes 6.1 % (0.0-10.0); %Neutrophils 63.6 % (42.0-75.0); Hematocrit 42.4 % (42.0-52.0); Hemoglobin 14.6 g/dL (14.0-18.0); Mean Corpuscular HGB CONC 34.4 g/dL (32.0-36.0); Mean Corpuscular Hemoglobin 30.5 pg (27.0-31.0); Mean Corpuscular Volume 88.7 fl (78.0-98.0); Mean Platelet Volume 9.8 fL (7.4-10.4); Platelet Count 196 10x3/uL (130-400); RBC Distribution Width 12.4 % (11.5-14.5); Red Blood Cell (RBC) Count 4.78 mill/uL (4.70-6.10); White Blood Cell (WBC) Count 5.4 10x3/uL (4.8-10.8)
[2023-08-20 11:54] LABS: ALT (SGPT) 20 U/L (8-55); AST (SGOT) 22 U/L (5-34); Albumin 4.3 g/dL (3.5-5.0); Alkaline Phosphatase 68 U/L (40-110); Anion Gap 10 mmol/L (10-20); BUN (Urea Nitrogen) 11 mg/dL (8.9-20.6); Bilirubin, Total 0.9 mg/dL (0.2-1.2); Calc. Creatinine Clearance 0 mL/min (70-130); Calcium 9.1 mg/dL (7.8-10.44); Carbon Dioxide 27 mmol/L (22-29); Chloride 106 mmol/L (98-107); Estimated GFR 81; Globulin 2.6 g/dL (2.4-3.5); Glucose 115 mg/dL (70-105); Lipase 9 U/L (8-78); Potassium 3.9 mmol/L (3.5-5.1); Protein, Total 6.9 g/dL (6.0-8.3); Sodium 139 mmol/L (136-145)
[2023-08-20 13:08] LABS: Bacteria/HPF None Seen HPF (None Seen); Bilirubin Negative (Negative); Blood, Urine Negative (Negative); CAUTI Indications for Culture Pelvic or flank pain; Clarity Clear (Clear); Glucose, Urine (Dipstick) Normal (Negative); Ketone, Urine Negative (Negative); Leukocyte Negative Leu/uL (Negative); Nitrite Negative (Negative); Protein, Urine (Dipstick) Negative (Neg-Trace); RBC/HPF None Seen HPF (0-3); Squamous Epithelial None Seen HPF (0-3); Urobilinogen Normal mg/dL (Less than 2); WBC/HPF 0-3 HPF (0-3); pH, Urine 5.5 (5.0-9.0)
[2023-08-20 13:12] LABS: Specific Gravity, Urine 1.003 (1.002-1.036); Urine Culture Reflex No No
[2023-08-20] MEDS ORDERED: Metoclopramide HCl 10 MG/2 ML VIAL ONE (13:21)
[2023-08-20] MEDS ORDERED: Morphine 4 MG/ML VIAL ONE (13:21)
[2023-08-20] MEDS ORDERED: Ketorolac Tromethamine 30 MG/ML VIAL ONE (14:59)
== END 2023-08-20 15:49 | disposition home or self-care (01) ==
LOC: ERS 10:43
DX: R33.9 Retention of urine, unspecified (principal)
CPT/HCPCS: 36415; 51702; 51798; 70450; 74177; 75809; 80053; 81001; 83690; 85025; 96365; 96375; J1885; J2270; J2765; Q9967

== ENCOUNTER 2023-08-20 20:57 | Emergency (ER) | payer OTHER | END 2023-08-20 23:13 | disposition home or self-care (01) | LOC: ERS 20:57 | DX: T83.018A Breakdown (mechanical) of other urinary catheter, initial encounter (principal) | CPT/HCPCS: 99283 ==

== ENCOUNTER 2024-07-25 22:56 | Emergency (ER) | payer OTHER ==
[~2024-07-25 22:56] MED LIST changes: +Iopamidol 370 76% 100 ML VIAL ONE; -Iopamidol-370 76% 500 ML 1 ML ONE
[2024-07-25 23:58] LABS: #Basophils 0.05 10x3/uL (0.0-0.2); %Basophils 0.6 % (0.0-1.0); %Eosinophils 1.3 % (0.0-10.0); %Lymphocytes 30.6 % (21.0-51.0); %Monocytes 6.7 % (0.0-10.0); %Neutrophils 60.7 % (42.0-75.0); Hematocrit 38.6 % (42.0-52.0); Hemoglobin 13.4 g/dL (14.0-18.0); Mean Corpuscular HGB CONC 34.7 g/dL (32.0-36.0); Mean Corpuscular Hemoglobin 30.1 pg (27.0-31.0); Mean Corpuscular Volume 86.7 fL (78.0-98.0); Mean Platelet Volume 10.1 fL (7.4-10.4); Platelet Count 229 10x3/uL (130-400); RBC Distribution Width 12.1 % (11.5-14.5); Red Blood Cell (RBC) Count 4.45 mill/uL (4.70-6.10)
[2024-07-26] MEDS ORDERED: fentaNYL 50 mcg/mL 1 mL Vial ONE (00:05)
[2024-07-26] MEDS ORDERED: Ondansetron PF 4 MG/2 ML Vial ONE (00:05)
[2024-07-26 00:17] LABS: ALT (SGPT) 17 U/L (8-55); AST (SGOT) 17 U/L (5-34); Albumin 4.3 g/dL (3.5-5.0); Alkaline Phosphatase 69 U/L (40-110); Anion Gap 14 mmol/L (10-20); BUN (Urea Nitrogen) 15 mg/dL (8.9-20.6); Bilirubin, Total 0.3 mg/dL (0.2-1.2); Calc. Creatinine Clearance 0 mL/min (70-130); Calcium 9.2 mg/dL (7.8-10.44); Carbon Dioxide 25 mmol/L (22-29); Chloride 105 mmol/L (98-107); Estimated GFR 72; Globulin 2.6 g/dL (2.4-3.5); Glucose 99 mg/dL (70-105); Potassium 3.4 mmol/L (3.5-5.1); Protein, Total 6.9 g/dL (6.0-8.3); Sodium 141 mmol/L (136-145)
[2024-07-26 00:52] LABS: Bacteria/HPF None Seen HPF (None Seen); Bilirubin Negative (Negative); Blood, Urine Negative (Negative); CAUTI Indications for Culture Pelvic or flank pain; Clarity Turbid (Clear); Glucose, Urine (Dipstick) Normal (Negative); Ketone, Urine Negative (Negative); Leukocyte Negative Leu/uL (Negative); Nitrite Negative (Negative); Protein, Urine (Dipstick) Negative (Neg-Trace); RBC/HPF 0-3 HPF (0-3); Specific Gravity, Urine 1.012 (1.002-1.036); Squamous Epithelial None Seen HPF (0-3); Urobilinogen Normal mg/dL (Less than 2); WBC/HPF 0-3 HPF (0-3)
[2024-07-26 00:54] LABS: Urine Culture Reflex No No
[2024-07-26] MEDS ORDERED: HYDROcodone/Acetaminophen 10/325 mg Tablet ONE (02:43)
[2024-07-26] MEDS ORDERED: Ketorolac Tromethamine 30 MG (1 mL) VIAL ONE (02:43)
== END 2024-07-26 03:00 | disposition home or self-care (01) ==
LOC: ERS 22:56
DX: R10.2 Pelvic and perineal pain (principal)
CPT/HCPCS: 36415; 74177; 80053; 81001; 85025; 96374; 96375; J1885; J2405; J3010; Q9967

== ENCOUNTER 2025-08-11 12:58 | Emergency (ER) | payer OTHER ==
[2025-08-11 13:46] LABS: #Basophils 0.04 10x3/uL (0.0-0.2); #Eosinophils 0.03 10x3/uL (0.0-0.7); #Monocytes 0.39 10x3/uL (0.11-0.59); #Neutrophils 4.53 10x3/uL (1.40-6.50); %Basophils 0.6 % (0.0-1.0); %Eosinophils 0.5 % (0.0-10.0); %Lymphocytes 19.8 % (21.0-51.0); %Monocytes 6.2 % (0.0-10.0); %Neutrophils 72.6 % (42.0-75.0); Hematocrit 45.1 % (42.0-52.0); Hemoglobin 15.5 g/dL (14.0-18.0); Mean Corpuscular Hemoglobin 29.4 pg (27.0-31.0); Mean Corpuscular Volume 85.6 fL (78.0-98.0); Platelet Count 202 10x3/uL (130-400); Red Blood Cell (RBC) Count 5.27 mill/uL (4.70-6.10); White Blood Cell (WBC) Count 6.25 10x3/uL (4.8-10.8)
[2025-08-11 14:10] LABS: ALT (SGPT) 23 U/L (Less than 45); AST (SGOT) 22 U/L (11-34); Albumin 4.7 g/dL (3.1-4.5); Alkaline Phosphatase 70 U/L (40-110); Anion Gap 15 mmol/L (10-20); BUN (Urea Nitrogen) 13 mg/dL (8.9-20.6); Bilirubin, Total 0.7 mg/dL (0.3-1.2); Calc. Creatinine Clearance 0 mL/min (70-130); Calcium 9.0 mg/dL (7.8-10.44); Carbon Dioxide 22 mmol/L (22-29); Chloride 108 mmol/L (98-107); Globulin 2.6 g/dL (2.4-3.5); Glucose 91 mg/dL (70-105); Potassium 3.8 mmol/L (3.5-5.1); Sodium 141 mmol/L (136-145)
[2025-08-11] MEDS ORDERED: HYDROcodone/Acetaminophen 10/325 mg Tablet ONE (15:39)
[2025-08-11 16:22] LABS: Bacteria/HPF None Seen HPF (None Seen); CAUTI Indications for Culture Acute Hematuria; Glucose, Urine (Dipstick) Normal (Negative); Leukocyte Negative Leu/uL (Negative); Protein, Urine (Dipstick) Negative (Neg-Trace); RBC/HPF None Seen HPF (0-3); Specific Gravity, Urine 1.009 (1.002-1.036); WBC/HPF None Seen HPF (0-3)
[2025-08-11 16:26] LABS: Urine Culture Reflex No No
== END 2025-08-11 16:48 | disposition home or self-care (01) ==
LOC: ERS 12:58
DX: R51.9 Headache, unspecified (principal)
CPT/HCPCS: 70450; 75809; 80053; 81001; 85025; 86141; 96374; J3010